=== PATIENT | male | born 1985 | race Caucasian/White ===

== ENCOUNTER 2016-07-20 04:45 | Emergency (ER) | payer OTHER ==
[~2016-07-20] VITALS: Ht 175.3 cm; Wt 76.7 kg
[2016-07-20 04:49] VITALS: BP 89/48
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
--- NOTE | 2016-07-20 04:50 | NUR ---
GIVE REPORT TO CUATE FROM [facility] ER.
--- NOTE | 2016-07-20 04:55 | NUR ---
REPORTED TO [facility] AND SPOKEN TO DERECK.
--- NOTE | 2016-07-20 04:55 | NUR ---
DR SANTANA AT BEDSIDE. PIV'S STARTED, NS BOLUS BEING GIVEN, 1 UNIT BLOOD ORDERED, RT AT BEDSIDE, XRAY AT BEDSIDE, HOUSESUPERVISOR AT BEDSIDE.
[2016-07-20 05:04] VITALS: BP 112/67
--- NOTE | 2016-07-20 05:05 | NUR ---
RBC STARTED, INFUSING WITHOUT PROBLEMS. TRANSPORT HERE, GETTING REPORT, READY TO TRANSPORT PT TO [facility]. PT IS TALKING TO TRANSPORT AT THIS TIME.
--- NOTE | 2016-07-20 05:20 | NUR ---
TRANSPORT HAS LOADED UP PATIENT AND IS TRANSPORTING HIM AT THIS TIME TO [facility].
--- NOTE | 2016-07-20 05:20 | NUR ---
NSS 2000 ML IV WIDE OPEN STARTED AT 0445 AM STOP 0520 AM TOTAL INTAKE 2000 ML
== END 2016-07-20 05:20 | disposition short-term general hospital (02) ==
LOC: EDBD 04:45 → EEVIPCON 04:45 → MED 04:45
DX: S21.102A Unspecified open wound of left front wall of thorax without penetration into thoracic cavity, initial encounter (principal); S41.001A Unspecified open wound of right shoulder, initial encounter; S41.101A Unspecified open wound of right upper arm, initial encounter; S11.90XA Unspecified open wound of unspecified part of neck, initial encounter; T79.4XXA Traumatic shock, initial encounter; Y08.89XA Assault by other specified means, initial encounter; Y93.89 Activity, other specified; Y92.481 Parking lot as the place of occurrence of the external cause; Y99.8 Other external cause status
CPT/HCPCS: 71010; 99283; 99285